=== PATIENT | female | born 1955 | race Caucasian/White ===

== ENCOUNTER 2016-07-09 11:35 | Emergency (ER) | payer OTHER, MEDICAID ==
[2016-07-09 11:44] VITALS: TEMP 98
--- NOTE | 2016-07-09 12:16 | EDPHY ---
HPI/HX/ROS/PE/MDM Narrative: CHIEF COMPLAINT: Left facial pain HPI: The patient is a 61-year-old female with a history of anxiety. She complains of on and off left-sided facial pain that has been present for the last few months. Today it got worse. She also describes sensation of intermittent vertigo and pain around her left eye. The patient states that she has been seen by a dentist approximately 1 year ago and told that she may have an infection to the upper molars in that area. She complains of mild rhinorrhea but no fever. No vision changes. No ringing in the ear. No facial trauma. REVIEW OF SYSTEMS: Aside from elements discussed in the HPI, a comprehensive 10-point review of systems was reviewed and is negative. PMH: Includes anxiety. Prior dental infection. SOCIAL HISTORY: . Denies alcohol or drug abuse. PHYSICAL EXAM: General:Patient is alert, in no acute distress. ENT:Eyes are normal to inspection. ENT inspection normal. TMs normal bilaterally. Neck: Normal inspection. Full range of motion. Respiratory:No respiratory distress. Breath sounds normal bilaterally. Skin: Normal color. No rash. Warm and dry. No rash or vesicles. Extremities: Normal appearance. Full range of motion. Neuro: Oriented x3. Normal motor function. Normal sensory function. There is a very subtle left upper lip droop which patient states is chronic for her. Cranial nerves otherwise intact. MDM: This patient presents with intermittent chronic left-sided facial pain. I considered Elkins's palsy, but the patient states she has no numbness or facial paralysis. I think the most likely explanation is a dental infection although sinusitis is possible as well. I think it is reasonable to start the patient on amoxicillin which should cover both dental infection as well as potential but less likely sinus infection and I strongly encouraged the patient to follow up with a dentist. I see no signs of otitis media. General Time Seen by Provider: 07/09/16 11:47 Initial Vital Signs: Initial Vital Signs Temperature (C) 36.6 C 07/09/16 11:42 Heart Rate 78 07/09/16 11:42 Respiratory Rate 18 07/09/16 11:42 Blood Pressure 160/85 H 07/09/16 11:42 O2 Sat (%) 96 07/09/16 11:42 O2 Delivery Mode Room Air Allergies/Adverse Reactions: phenelzine sulfate [From [place]] Allergy (Severe, Verified 01/26/15 07:22) Hypotension MAO INHIBITORS Allergy (Severe, Uncoded 01/26/15 07:22) HYPOTENSION SEVERE Home Medications: Medication Instructions Recorded clonazePAM [klonoPIN (RX)] 2 mg PO TID 09/16/11 Ambien 5MG (RX) 01/26/15 clonazePAM [KlonOPIN] 1 mg PO TID #6 tab 01/26/15 CYCLOBENZAPRINE HCL [Flexeril] 5 mg PO TIDPRN PRN #10 tab 02/03/16 Amoxicillin Trihydrate 500 mg PO TID 7 Days 07/09/16 [Amoxicillin] Departure - Departure Disposition: Home, Routine, Self-Care Clinical Impression: Facial pain Condition: Good Instructions: Sinusitis (ED) Additional Instructions: Your facial pain may be due to tooth infection, sinus infection or possible nerve issue. We recommend you take antibiotics and follow-up with a dentist within 72 hours for evaluation. Return to the ED for fever, worsening pain, worsening vertigo, change in vision or other concerns. Referrals: My Peralta MD [Primary Care Provider] - As per Instructions Prescriptions: Amoxicillin Trihydrate [Amoxicillin] 500 mg PO TID 7 Days
[2016-07-09 12:34] VITALS: BP 162/102; PULSE 118; RESP 16; O2SAT 97
== END 2016-07-09 12:20 | disposition home or self-care (01) ==
LOC: CED 11:35
DX: R51 Headache (principal)

== ENCOUNTER 2016-07-18 09:38 | Emergency (ER) | payer OTHER, MEDICAID ==
[2016-07-18 09:50] VITALS: TEMP 98.6
--- NOTE | 2016-07-18 10:36 | EDPHY ---
H & P Time Seen by Provider: 07/18/16 09:54 HPI/ROS: This Patient complains of ongoing vertigo with some L. sided facial discomfort. She was seen here on July 09 for the same symptoms in treated with amoxicillin-7 days for possible dental infection versus sinusitis. Patient felt that she had perhaps slight improvement during that time on the amoxicillin but her symptoms are now a similar severity in terms of the facial discomfort-currently 3/10 left cheek more than right cheek and L. retro-orbital location. She reports that her associated vertigo has diminished but is still present. She describes this as intermittent and not clearly positional. The intensity the vertigo is now mild. She complains of associated nausea and requests nausea medicine. She wonders if she may need more antibiotic for her symptoms. ROS: Constitutional: No fevers or chills. She does complain of fatigue. She attributes some of this to poor sleep in recent months due to care for her to his home after surgery. HEENT: She reports mild coryza but no significant nasal congestion. She complains of mild left ear discomfort. She has tenderness to the left ear but has diminished compared to her visit on July 09. No sore throat. She does complain of blurry left eye vision for 2 months. No pain in the eye redness the our discharge from the eye. Neuro: She reports a chronic left lip droop-upper lip since she was in her 20s. She denies any recent changes in this. She has photophobia for 2 months. She has chronic bilateral foot paresthesias that she attributes to a combination of previous knee surgery and back surgery with radiculopathy. No bowel or bladder incontinence. Focal weakness. She admits some difficulty with her memory in recent months. Psychiatric: She admits some anxiety. She denies any significant depression. Integumentary: She reports skin pigment changes since 2013 this started in her left arm and have since spread to her torso, right arm and some in her legs. No acute rash or other complaints Pulmonary: No complaints Cardiovascular: No heart palpitations, chest pain lightheadedness or lower extremity swelling. GI: She has nausea that she attributes to her vertigo. No vomiting. Mild constipation describes firm stools but she had a bowel movement yesterday. Abdominal pain. : No complaints Endocrine: Skin changes as noted above. Otherwise negative. Complete review of symptoms is otherwise negative. Past Medical/Surgical History: Cervical radiculopathy with chronic left arm pain, cervical surgery by Dr. Mckeon in 2013 Chronic left upper lip droop with no brain imaging per patient's recollection. Smoking Status: Never smoked Physical Exam: Physical exam: Vital signs are normal General: Patient is in no acute distress. HEENT: Is no external evidence of trauma on exam. Eyes: Pupils are equal and reactive to light. Extraocular motions are intact. Optic fundi: Clear with no papilledema or hemorrhage. Nose atraumatic. Ears: Clear bilaterally with no hemotympanum. Oropharynx: No dental trauma or malocclusion. No intraoral lacerations. Eyes: Pupils are equal and reactive to light. Extraocular motions are intact. Optic fundi: Clear with no papilledema or hemorrhage. Lungs: Clear to auscultation bilaterally Neck: Supple no meningismus. Cardiac: Regular rate and rhythm no murmur gallop or rub. Abdomen: Soft nontender no organomegaly Skin: Patient has areas of hypopigmentation to her left arm torso and right arm , other places with increased pigmentation. No petechia or purpura. No diaphoresis. No pallor. Neuro: GCS of 15. Cranial nerves II through XII intact. Cerebellar exam is normal as judged by symmetric rapid hand movements bilaterally. No pronator drift. No sensory or motor deficits are appreciated. Psychiatric: Mood and affect normal. Patient is a bit of wandering historian. However, she maintains logical thought content. She denies any major depression, she has no psychotic symptoms. Initial differential diagnosis: Migraine, FLATWORK TIER lesion, pituitary tumor, intracranial bleed, central vertigo, benign positional vertigo, tension headache , sinusitis, dental infection Constitutional: Initial Vital Signs Temperature (C) 37 C 07/18/16 09:46 Heart Rate 76 07/18/16 09:46 Respiratory Rate 20 07/18/16 09:46 Blood Pressure 114/69 07/18/16 09:46 O2 Sat (%) 96 07/18/16 09:46 Allergies/Adverse Reactions: phenelzine sulfate [From Nardil] Allergy (Severe, Verified 07/18/16 09:45) Hypotension MAO INHIBITORS Allergy (Severe, Uncoded 01/26/15 07:22) HYPOTENSION SEVERE Home Medications: Medication Instructions Recorded Clonazepam 07/18/16 Fluticasone Nasal [Flonase Nasal 2 sprays NASAL DAILY #1 mdi 07/18/16 [place]] Meclizine HCl [Meclizine HCl 25 mg 25 mg PO TID PRN #20 tab 07/18/16 (RX,OTC)] Ondansetron Odt [Zofran Odt] 4 - 8 mg PO Q4PRN PRN #4 tab 07/18/16 [place] 07/18/16 MDM/Departure - MDM Imaging Results: Imaging Impressions Head CT 07/18/16 10:36 Impression: Possible premature atrophy. Head CT otherwise within normal limits. If there is concern for vertebral artery dissection, then consider either MRI of the brain and/or CT angiography of the head and neck. Results discussed with Dr. Vu Bryant and 11:10 AM General information for patients regarding this examination can be found at [email or web address]. If you have questions or comments about this report, please contact me at [phone] (hospital) or [phone] ([facility]). I discussed these findings with Dr. Holly. I also reviewed the images myself. Imaging: Discussed imaging studies w/ call center team leader Radiologist Medications Given: Discontinued Medications Meclizine HCl (Meclizine Hcl) 25 mg PO EDNOW ONE Stop: 07/18/16 10:50 Last Admin: 07/18/16 10:54 Dose: 25 mg Ondansetron HCl (Zofran Odt) 4 mg PO EDNOW ONE Stop: 07/18/16 10:50 Last Admin: 07/18/16 10:54 Dose: 4 mg ED Course/Re-evaluation: Zofran for nausea and meclizine for vertigo. Given the combination of the patient's subjective sense of vision change, chronic left facial droop, skin pigment change and ongoing vertigo I feel it is important to pursue CT imaging of her brain to rule out pituitary tumor, other tumor, ischemic stroke, hemorrhagic stroke or other. I counseled the patient regarding this. She agrees to CT imaging I reviewed the CT imaging results with the patient-no pituitary or other tumor, no sinusitis. She does have some cerebral atrophy that seems advanced for her age. However, patient reports when she was 32 years old had a CT scan prior to starting the clonazepam she was told the same thing. Discussion: Patient presents with ongoing vertigo mild facial pain and tendinitis. After workup, I find no evidence of central vertigo, stroke, intracranial bleed or sinusitis.. Findings are consistent with a peripheral vertigo though not classically positional in that does not clearly worsened with position changes. She relates that she had a month long episode of vertigo when she was younger. I will try her on Flonase, meclizine and Zofran to control the symptoms with plan to follow up with Dr. Angelita Castro-ENT specialist for any ongoing symptoms or worsening symptoms. I allso encouraged her to follow up with Dr. Peralta, her primary care physician. I encouraged her to consider tapering off the clonazepam but the patient is unwilling to do this. I explained that some of her symptoms-including difficulty with memory and balance may be related to her clonazepam. - Depart Disposition: Home, Routine, Self-Care Clinical Impression: Facial pain, Vitiligo Peripheral vertigo Qualifiers: Laterality: unspecified laterality Qualified Code(s): H81.399 - Other peripheral vertigo, unspecified ear Condition: Good Instructions: Vertigo (ED) Additional Instructions: Diagnoses: 1. Vertigo 2. Facial pain 3. Vitiligo (skin-pigment abnormality) CT of your brain today reveals no tumor, no bleed, no sinusitis, presence of mild cerebral atrophy Plan: Humidifier Flonase steroid nasal spray Zofran for nausea or vomiting if needed Meclizine to help control symptoms You may reconsider tapering off of your clonazepam and trying a different antianxiety medicine. Your difficulty thinking may in part be related to the chronic clonazepam use. This is also associated with cerebral atrophy. Follow up with Dr. Dr. Peralta for a re-check in 3-10 days if you have ongoing sx 's Follow up with Ear Nose Throat specialist - Dr. Angelita Castro for any ongoing vertigo or tinnitus despite the treatment plan Return to the emergency department for any significant worsening despite the treatment plan. Prescriptions: Fluticasone Nasal [Flonase Nasal [place]] 2 sprays NASAL DAILY #1 mdi Meclizine HCl [Meclizine HCl 25 mg (RX,OTC)] 25 mg PO TID PRN #20 tab PRN Reason: vertigo Ondansetron Odt [Zofran Odt] 4 - 8 mg PO Q4PRN PRN #4 tab PRN Reason: Vomiting Referrals: My Peralta MD [Primary Care Provider] - As per Instructions Angelita Castro MD [Medical Doctor] - As per Instructions
[2016-07-18] MEDS ORDERED: ONDANSETRON DISINTEGRATING 4 MG TAB PO ONE (10:49)
[2016-07-18] MEDS ORDERED: MECLIZINE HCL 25 MG TAB PO ONE (10:49)
[2016-07-18] MEDS ORDERED: ONDANSETRON 4MG PREPACK#2 BTL TAKEHOME ONE (11:37)
[2016-07-18 11:51] VITALS: RESP 16; O2SAT 93
[2016-07-18 11:52] VITALS: BP 107/65; PULSE 69
== END 2016-07-18 11:36 | disposition home or self-care (01) ==
LOC: CED 09:38
DX: H81.399 Other peripheral vertigo, unspecified ear (principal); R51 Headache; L80 Vitiligo
CPT/HCPCS: 70450-PO

== ENCOUNTER 2016-08-31 06:51 | Emergency (ER) | payer OTHER, MEDICAID ==
[2016-08-31] MEDS ORDERED: NS 1,000 ML IV ONE ×2 (07:00→07:44)
[2016-08-31] MEDS ORDERED: ONDANSETRON 4 MG/2 ML VIAL IVP ONE (07:00)
[2016-08-31] MEDS ORDERED: ONDANSETRON 4 MG/2 ML VIAL ONE (07:08)
[2016-08-31] MEDS ORDERED: METOPROLOL TARTRATE 25 MG TAB PO ONE (07:29)
[2016-08-31] MEDS ORDERED: LORazepam 2 MG/ML INJ IVP ONE ×2 (07:29→08:05)
[2016-08-31 07:39] LABS: % IMMATURE GRANULYOCYTES 0.4 % (0.0-1.1); ABSOLUTE IMMATURE GRANULOCYTES 0.04 10^3/uL (0.00-0.10); ADD DIFF? NO; ADD MORPH? NO; ADD SCAN? NO; ATYPICAL LYMPHOCYTE FLAG 0 (0-99); FRAGMENT RBC FLAG 0 (0-99); HEMATOCRIT 42.9 % (38.0-47.0); HEMOGLOBIN 16.1 g/dL (12.6-16.3); LEFT SHIFT FLG 0 (0-99); MEAN CELL HEMOGLOBIN 30.6 pg (27.9-34.1); MEAN CELL HEMOGLOBIN CONCENTR. 37.5 g/dL (32.4-36.7); MEAN CELL VOLUME 81.6 fL (81.5-99.8); MEAN PLATELET VOLUME 9.8 fL (8.7-11.7); PLATELET CLUMPS FLAG 90 (0-99); PLATELET COUNT 454 10^3/uL (150-400); RED BLOOD CELL COUNT 5.26 10^6/uL (4.18-5.33); RED CELL DISTRIBUTION WIDTH 12.4 % (11.5-15.2)
[2016-08-31 07:40] LABS: LIPEMIA HEMOLYSIS FLAG 100 (0-99)
--- NOTE | 2016-08-31 07:40 | EDPHY ---
H & P Stated Complaint: dizziness/nausea/vomiting/sinus congestion and drainage since . night. Time Seen by Provider: 08/31/16 07:04 HPI/ROS: This patient complains of vomiting since Wednesday, 3 days prior to arrival. She reports associated anorexia. She also complains of anxiety and explains that she has been able to keep some of her clonazepam down. She is benzo dependence and takes 2 mg 3 times a day of clonazepam and has for years. Her drove her in today for evaluation. She also reports ongoing dizziness which is been a problem for her over the past years so. She describes this is a combination of vertiginous feeling and spinning sensation. She notes no clear exacerbating factors for this. I prescribed meclizine for 100 previous visit in June and she reports some relief from meclizine for mild symptoms but feels symptoms are more prominent now. She has multiple somatic complaints that are mostly chronic but her main complaint seems to be anxiety and vomiting. ROS: Constitutional: No fever. Neuro: She reports a feeling of the jaw locked up she reports no focal numbness tingling or weakness. HEENT: She reports coryza reports that she has a postnasal drip but also complains of sinus pressure in the maxillary area bilaterally. She thinks that antibiotics help her symptoms and explains that she was treated with a Zithromax pack by to be her primary care physician the beginning of July well as allergy med felt like she had some partial improvement from this. She has chronic tinnitus unchanged. She reports a dry mouth. Pulmonary: No significant cough. She has mild dyspnea that she attributes to anxiety. Cardiac: No chest pain. No heart palpitations she reports hypertension this morning and took an unknown blood pressure medicine at home that she takes as needed. GI: She reports constipation with no bowel movement since Wednesday. She usually goes every other day. She typically takes a stool softener but she has been too nauseous to take it. She does recall the name of the stool softener. She has mild knotting feeling in the periumbilical region and slight bloating. No upper lower pain. No hematemesis or coffee-ground emesis. She has ongoing nausea currently. The periumbilical in discomfort does not radiate. : She reports some difficulty passing urine this morning but denies dysuria. No other symptoms. Integumentary: No skin rashes. Complete review of symptoms is otherwise negative Source: Patient Exam Limitations: No limitations - Personal History Current Tetanus Diphtheria and Acellular Pertussis (TDAP): Yes Tetanus Vaccine Date: <10 YRS - Medical/Surgical History Hx Asthma: No Hx Chronic Respiratory Disease: No Hx Diabetes: No Hx Cardiac Disease: No Hx Renal Disease: No Hx Cirrhosis: No Hx Alcoholism: No Hx HIV/AIDS: No Hx Splenectomy or Spleen Trauma: No Other PMH: OVARIAN CYST REMOVED//BACK AND NECK OR, CHRONIC PAIN, CERVICAL ABLATION 02/10, anxiety/panic attacks. Surgeries: neck, back, knees, appy - Family History Significant Family History: No pertinent family hx - Social History Smoking Status: Never smoked Alcohol Use: None Drug Use: None - Physical Exam Exam: Vital signs are notable initially for tachycardia to 125 and hypertension 165/ 106. She is afebrile. Other vitals are normal. General Appearance: Alert, no distress. Eyes: Pupils equal and round no pallor or injection. ENT, Mouth: Mucous membranes dry. No sinus tenderness to percussion. Ears are clear bilaterally. Oropharynx is clear Respiratory: There are no retractions, lungs are clear to auscultation. Cardiovascular: Tachycardic with no murmur gallop or rub Gastrointestinal: Normoactive soft, minimal periumbilical tenderness with no guarding or rebound. Neurological: GCS 15. No focal sensory or motor deficits are appreciated. Cranial nerves 2-12 intact cerebellar exam is normal-symmetric rapid hand movements intact. Skin: Warm and dry, no rashes. Musculoskeletal: Neck is supple nontender. Extremities are symmetrical, full range of motion. Psychiatric: Patient is very anxious. Her thoughts are circuitous and she does not answer questions directly. She has no pressured speech. DIFFERENTIAL DIAGNOSIS: After history and physical exam differential diagnosis was considered for anxiety, mild benzo withdrawal symptoms, viral illness, Meniere's disease, benign positional vertigo, metabolic disarray, mi, UTI, dehydration Constitutional: Initial Vital Signs Temperature (C) 36.6 C 08/31/16 07:06 Heart Rate 124 H 08/31/16 07:06 Respiratory Rate 20 08/31/16 07:06 Blood Pressure 165/106 H 08/31/16 07:06 O2 Sat (%) 99 08/31/16 07:06 O2 Delivery Mode Room Air Allergies/Adverse Reactions: phenelzine sulfate [From Nardil] Allergy (Severe, Verified 08/31/16 07:09) Hypotension MAO INHIBITORS Allergy (Severe, Uncoded 08/31/16 07:09) HYPOTENSION SEVERE Home Medications: Medication Instructions Recorded Clonazepam 07/18/16 Meclizine HCl 08/31/16 Temazepam [Restoril 15 MG (*)] 08/31/16 Medical Decision Making - Data Points Laboratory Results: Laboratory Results 08/31/16 07:05 08/31/16 07:05 08/31/16 08/31/16 07:05 07:05 WBC 9.28 10^3/uL 10^3/uL (3.80-9.50) RBC 5.26 10^6/uL 10^6/uL (4.18-5.33) Hgb 16.1 g/dL g/dL (12.6-16.3) Hct 42.9 % % (38.0-47.0) MCV 81.6 fL fL (81.5-99.8) MCH 30.6 pg pg (27.9-34.1) MCHC 37.5 g/dL H g/dL (32.4-36.7) RDW 12.4 % % (11.5-15.2) Plt Count 454 10^3/uL H 10^3/uL (150-400) MPV 9.8 fL fL (8.7-11.7) Neut % (Auto) 64.9 % % (39.3-74.2) Lymph % (Auto) 25.9 % % (15.0-45.0) [place] % (Auto) 7.9 % % (4.5-13.0) Eos % (Auto) 0.5 % L % (0.6-7.6) Baso % (Auto) 0.4 % % (0.3-1.7) Nucleat RBC Rel Count 0.0 % % (0.0-0.2) Absolute Neuts (auto) 6.02 10^3/uL 10^3/uL (1.70-6.50) Absolute Lymphs (auto) 2.40 10^3/uL 10^3/uL (1.00-3.00) Absolute Monos (auto) 0.73 10^3/uL 10^3/uL (0.30-0.80) Absolute Eos (auto) 0.05 10^3/uL 10^3/uL (0.03-0.40) Absolute Basos (auto) 0.04 10^3/uL 10^3/uL (0.02-0.10) Absolute Nucleated RBC 0.00 10^3/uL 10^3/uL (0-0.01) Immature Gran % 0.4 % % (0.0-1.1) Immature Gran # 0.04 10^3/uL 10^3/uL (0.00-0.10) Sodium 129 mEq/L L mEq/L (134-144) Potassium 3.8 mEq/L mEq/L (3.5-5.2) Chloride 91 mEq/L L mEq/L (97-110) Carbon Dioxide 19 mEq/l L mEq/l (22-31) Anion Gap 19 mEq/L H mEq/L (8-16) BUN 16 mg/dL mg/dL (7-23) Creatinine 1.2 mg/dL H mg/dL (0.6-1.0) Estimated GFR 46 Glucose 113 mg/dL H mg/dL (70-100) Calcium 10.3 mg/dL mg/dL (8.5-10.4) Departure - Departure Referrals: My Peralta MD [Primary Care Provider] - As per Instructions
[2016-08-31 07:42] LABS: CALCIUM 10.3 mg/dL (8.5-10.4); CREATININE 1.2 mg/dL (0.6-1.0); POTASSIUM 3.8 mEq/L (3.5-5.2)
--- NOTE | 2016-08-31 08:14 | CPEKG ---
Heart Rate: 95 RR Interval: 632 P-R Interval: 156 QRSD Interval: 78 QT Interval: 384 QTC Interval: 483 P [place]: 70 QRS [place]: 44 T Wave [place]: 43 EKG Severity - BORDERLINE ECG - EKG Impression: SINUS RHYTHM EKG Impression: PROBABLE LEFT ATRIAL ABNORMALITY Electronically Signed By: Vu Bryant 31-Aug-2016 10:24:31
[2016-08-31 08:24] LABS: COLOR YELLOW; LEUKOCYTE ESTERASE,URINE NEGATIVE (NEGATIVE); NITRITE,URINE NEGATIVE (NEGATIVE)
[2016-08-31 08:45] LABS: ALBUMIN 4.6 g/dL (3.5-5.0); BILIRUBIN,TOTAL 1.1 mg/dL (0.1-1.4); BILIRUBIN-UNCONJUGATED 0.1 mg/dL (0.0-1.1); TOTAL PROTEIN 7.6 g/dL (6.3-8.2)
[2016-08-31] MEDS ORDERED: METOCLOPRAMIDE 10 MG/2 ML VIAL IVP ONE (09:06)
[2016-08-31] MEDS ORDERED: HYOSCYAMINE SULFATE 0.125 MG TAB PO ONE (09:35)
[2016-08-31 10:24] VITALS: BP 125/66; PULSE 89; RESP 20; TEMP 98.4; O2SAT 97
== END 2016-08-31 10:23 | disposition home or self-care (01) ==
LOC: CED 06:51
DX: E86.0 Dehydration (principal); K59.00 Constipation, unspecified; E86.9 Volume depletion, unspecified
CPT/HCPCS: 93005; 96361; 96374; 96375; 96376; 99284; J1200; J2060; J2405; J2765; 80048-PO; 80076-PO; 81003-PO; 85025-PO

== ENCOUNTER 2016-10-02 12:42 | Emergency (ER) | payer OTHER, MEDICAID ==
[2016-10-02 13:06] VITALS: RESP 20; TEMP 97.9
[2016-10-02 13:23] LABS: COLOR YELLOW; LEUKOCYTE ESTERASE,URINE NEGATIVE (NEGATIVE); NITRITE,URINE NEGATIVE (NEGATIVE); PH,URINE 5.5 (5.0-7.5)
[2016-10-02] MEDS: ONDANSETRON DISINTEGRATING 4 MG TAB PO ONE (14:10)
--- NOTE | 2016-10-02 14:21 | EDPHY ---
H & P Stated Complaint: Mult complaints. Dizzy/UTI s/s / left ear ringing/ Time Seen by Provider: 10/02/16 13:16 HPI/ROS: CHIEF COMPLAINT: Dysuria History by patient HISTORY OF PRESENT ILLNESS: 61-year-old woman presents complaining of 1 day of dysuria without frequency or hematuria. She has also had some low abdominal pain and had 3 episodes of watery diarrhea this morning. She is also complaining of nausea. She has some chronic vertigo and dizziness which she also complains of. It is difficult to get history from the patient because she says, " I already told this to the nurse why do I have to tell you again?" She also noted some vaginal discharge today. She denies vaginal bleeding. She denies concerns about sexually transmitted diseases she is and monogamous. She also complains of pain in her left tooth and in her bilateral ears. REVIEW OF SYSTEMS: As in HPI, and all other systems reviewed and are negative Source: Patient - Personal History Current Tetanus/Diphtheria Vaccine: Unsure Current Tetanus Diphtheria and Acellular Pertussis (TDAP): Unsure Tetanus Vaccine Date: <10 YRS - Medical/Surgical History Hx Asthma: No Hx Chronic Respiratory Disease: No Hx Diabetes: No Hx Cardiac Disease: No Hx Renal Disease: No Hx Cirrhosis: No Hx Alcoholism: No Hx HIV/AIDS: No Hx Splenectomy or Spleen Trauma: No Other PMH: OVARIAN CYST REMOVED//BACK AND NECK OR, CHRONIC PAIN, CERVICAL ABLATION 02/10, anxiety/panic attacks. Surgeries: neck, back, knees, appy - Social History Smoking Status: Never smoked - Physical Exam Exam: General Appearance: Alert and no distress. Head: normocephalic, atraumatic, no sinus tenderness Eyes: Pupils equal and round no injection. Ears: TM clear bilat OP: mucus membranes moist, no tonsillar enlargement, no exudates Neck: no meningismus, no cervical nodes, no submandibular nodes Respiratory: Chest is nontender, lungs are clear to auscultation. Cardiac: regular rate and rhythm. Gastrointestinal: Abdomen is soft and nontender, no masses, bowel sounds normal. Back: No CVA tenderness Musculoskeletal: Neck is supple and nontender. Extremities have full range of motion and are nontender. Skin: No rashes or lesions. Constitutional: Initial Vital Signs Temperature (C) 36.6 C 10/02/16 12:50 Heart Rate 95 10/02/16 12:50 Respiratory Rate 20 10/02/16 12:50 Blood Pressure 166/113 H 10/02/16 12:50 O2 Sat (%) 96 10/02/16 12:50 O2 Delivery Mode Room Air Allergies/Adverse Reactions: phenelzine sulfate [From [place]] Allergy (Severe, Verified 10/02/16 13:07) Hypotension MAO INHIBITORS Allergy (Severe, Uncoded 10/02/16 13:07) HYPOTENSION SEVERE Home Medications: Medication Instructions Recorded Clonazepam 07/18/16 Temazepam [Restoril 15 MG (*)] 08/31/16 Ondansetron Odt [Zofran Odt 4 mg 4 mg PO Q4 PRN #12 tab 10/02/16 (*)] Medical Decision Making ED Course/Re-evaluation: 61-year-old woman presents with dysuria and a litany of other complaints although she is somewhat uncooperative with history and physical. Urinalysis showed no evidence of urinary tract infection I recommended a pelvic exam but the patient declined. It was difficult to get the patient to agree to a abdominal exam. She did complain of ongoing nausea and was given some Zofran in the ED. There is no evidence of acute systemic toxicity. Urine sample was taken for GC and Chlamydia. Patient now on a stay for any other evaluation or workup but requested a prescription for Zofran to go home with. We discussed return precautions and will call the patient if the GC and chlamydia tests are positive. - Data Points Laboratory Results: 10/02/16 10/02/16 14:13 13:15 Urine Color YELLOW Urine Appearance CLEAR Urine pH 5.5 (5.0-7.5) Ur Specific [place] <= 1.005 (1.002-1.030) Urine Protein NEGATIVE (NEGATIVE) Urine Ketones NEGATIVE (NEGATIVE) Urine Blood NEGATIVE (NEGATIVE) Urine Nitrate NEGATIVE (NEGATIVE) Urine Bilirubin NEGATIVE (NEGATIVE) Urine Urobilinogen 0.2 EU EU (0.2-1.0) Ur Leukocyte Esterase NEGATIVE (NEGATIVE) Urine Glucose NEGATIVE (NEGATIVE) C.trachomatis RNA (TMA) Pending Medications Given: Discontinued Medications Ondansetron HCl (Zofran Odt) 4 mg PO EDNOW ONE Stop: 10/02/16 14:06 Last Admin: 10/02/16 14:10 Dose: 4 mg Departure - Departure Disposition: Left Without Being Seen Clinical Impression: Dysuria, Nausea alone, Diarrhea Condition: Good Instructions: Dysuria (ED) Additional Instructions: You were seen by Dr. Alice Hall today. Take Zofran as needed for nausea. There is no evidence of urinary tract infection in your urine. We have sent the urine for test for Chlamydia and gonorrhea to rule out vaginal or pelvic infection. We will call you if these tests are positive. Return for any worsening or new concerns. Referrals: My Peralta MD [Primary Care Provider] - As per Instructions Prescriptions: Ondansetron Odt [Zofran Odt 4 mg (*)] 4 mg PO Q4 PRN #12 tab PRN Reason: Nausea
[2016-10-02 14:31] VITALS: BP 175/97; PULSE 100; O2SAT 95
== END 2016-10-02 14:31 | disposition left against medical advice (07) ==
LOC: CED 12:42
DX: R30.0 Dysuria (principal); R19.7 Diarrhea, unspecified; R11.0 Nausea
CPT/HCPCS: 81003-PO